=== PATIENT | male | born 1965 | race Caucasian/White ===

== ENCOUNTER 2018-01-25 05:08 | Observation (INO) | payer MEDICARE, OTHER ==
[~2018-01-25] VITALS: Ht 177.8 cm; Wt 106.8 kg
[2018-01-25] VITALS (8 sets, daily range): BP systolic 115–145; BP diastolic 70–86; PULSE 77–90; RESP 18–20; TEMP 97.9–98.3; O2SAT 94–98
[~2018-01-25 05:08] MED LIST: HYDR50IN3 PO; PARO30TA OR; RISP1TAB2 OR; SERO50TA OR
[2018-01-25] MEDS ORDERED: PARO10TA2 PO (05:34)
[2018-01-25] MEDS ORDERED: XANA2TAB2 PO (05:34)
[2018-01-25] MEDS ORDERED: BUPR100T4 PO (05:34)
[2018-01-25] MEDS ORDERED: TRAZ50TA12 PO (05:34)
[2018-01-25] MEDS ORDERED: RISP1TAB2 PO (05:34)
[2018-01-25 05:46] LABS: AUTOMATED NEUTROPHIL # 5.2 TH/MM3 (1.8-7.7); BASOPHIL # 0.1 TH/MM3 (0-0.2); BASOPHIL % 1.1 % (0.0-2.0); EOSINOPHIL # 0.3 TH/MM3 (0-0.4); EOSINOPHIL % 3.4 % (0.0-4.0); HEMATOCRIT 53.8 % (39.0-51.0); MEAN CELL VOLUME 91.5 FL (80.0-100.0); MEAN CORPUSCULAR HEMOGLOBIN 32.4 PG (27.0-34.0); MEAN CORPUSCULAR HGB CONC 35.4 % (32.0-36.0); MEAN PLATELET VOLUME 7.5 FL (7.0-11.0); MONO % 8.2 % (0.0-8.0); MONOCYTE # 0.8 TH/MM3 (0-0.9); NEUT % 55.3 % (16.0-70.0); PLATELET COUNT 208 TH/MM3 (150-450); RED BLOOD COUNT 5.88 MIL/MM3 (4.50-5.90); RED CELL DISTRIBUTION WIDTH 13.3 % (11.6-17.2); WHITE BLOOD COUNT 9.5 TH/MM3 (4.0-11.0)
[2018-01-25 05:58] LABS: PROTHROMBIN TIME - PATIENT 9.7 SEC (9.8-11.6)
[2018-01-25 05:59] LABS: ALBUMIN 4.2 GM/DL (3.4-5.0); AST (GOT) 30 U/L (15-37); BICARBONATE 20.3 MEQ/L (21.0-32.0); BLOOD UREA NITROGEN 8 MG/DL (7-18); CALCIUM 8.5 MG/DL (8.5-10.1); CHLORIDE 108 MEQ/L (98-107); CREATININE 1.01 MG/DL (0.60-1.30); GLOMERULAR FILTRATION RATE 78 ML/MIN (>89); GLUCOSE,RANDOM 125 MG/DL (74-106); MAGNESIUM 2.4 MG/DL (1.5-2.5); SODIUM (NA) 140 MEQ/L (136-145)
[2018-01-25 06:00] LABS: ALT (GPT) 57 U/L (12-78)
--- NOTE | 2018-01-25 06:00 | PD ---
HPI Chief Complaint: Psychiatric Symptoms Time Seen by Provider: 05:15 Travel History International Travel<30 days: No Contact w/Intl Traveler<30days: No Traveled to known affect area: No History of Present Illness HPI The patient is a 52 year old male who presents to the [facility] emergency department with a history of increased problems with depression and suicidal ideations that began a month ago. He reports that he has had persistent depression for the last 4 years in spite of medication. He is unsure of the exact names of his medications. He is followed by a psychiatrist that he cannot recall the name of as an outpatient. He reports that 4 months ago his depression became much worse when his . He reports that in October he began consuming alcohol again. He reports that prior to that he had been clean and sober for a year. He reports that he now is drinking alcohol on a regular basis. He reports that he typically will drink 8 beers daily. The patient reports that he has attempted suicide in the past by overdosing on medication and attempting to drown himself. He reports that today he began to plan to overdose on drugs again. He then called 911 for assistance. The patient was placed under a Harrington act. On review of systems otherwise, the patient reports having recurrent problems with anxiety attacks and chest pain. He reports that he feels a fluttering sensation in his chest. He reports having shortness of breath with panic attacks. He denies having any recent cough or congestion, fevers or chills. He denies having any abdominal pain, urinary symptoms, or neurologic symptoms. He does report on review of systems having nausea and vomiting 4 days ago, and diarrhea last week. He has recently been moving his bowels regularly. [facility] Past Medical History Narrative Medical The patient's past medical history is significant for hypertension, history of alcohol abuse, history of chronic tobacco use, history of major depression Autoimmune Disease: No Anxiety: Yes Depression: Yes Cancer: No Cardiovascular Problems: No Diabetes: No Diminished Hearing: No Endocrine: No Genitourinary: No Immune Disorder: No Musculoskeletal: No Neurologic: No Psychiatric: Yes (MAJOR DEPRESSION RECURRENT) Reproductive: No Respiratory: No Thyroid Disease: No Past Surgical History Narrative Surgical The patient's past surgical history is significant for right upper extremity surgery related to snakebite Abdominal Surgery: No Cardiac Surgery: No Ear Surgery: No Endocrine Surgery: No Eye Surgery: No Genitourinary Surgery: No Gynecologic Surgery: No Oral Surgery: No Thoracic Surgery: No Other Surgery: Yes (R UPPER EXTREMITY SNAKE BITES) Social History Alcohol Use: Yes (8 beers per day) Tobacco Use: Yes (1 PPD) Substance Use: No Allergies-Medications (Allergen,Severity, Reaction): Coded Allergies: No Known Allergies (Unverified , 10/11/12) Reported Meds & Prescriptions Reported Meds & Active Scripts Active Reported Paroxetine (Paroxetine HCl) 10 Mg Tab 10 Mg PO DAILY Xanax (Alprazolam) 2 Mg Tab 2 Mg PO BID PRN Trazodone (Trazodone HCl) 50 Mg Tab 50 Mg PO HS Bupropion HCl 100 Mg Tab 100 Mg PO HS Risperidone 1 Mg Tab 1 Mg PO HS Review of Systems Except as stated in HPI: all other systems reviewed are Neg General / Constitutional: No: Fever Eyes: No: Visual changes HENT: No: Headaches Cardiovascular: Positive: Chest Pain or Discomfort Respiratory: Positive: Shortness of Breath Gastrointestinal: Positive: Nausea, Vomiting, Abdominal Pain, No: Hematemesis, Hematochezia, Changes in Bowel Habits, Indigestion, Loss of Appetite Genitourinary: No: Dysuria Musculoskeletal: No: Pain Skin: No Rash Neurologic: No: Weakness Psychiatric: Positive: Anxiety, Depression, Suicidal Ideations, Mood Disorder, Substance Abuse, No: Homicidal Ideation Endocrine: No: Polydipsia Hematologic/Lymphatic: No: Easy Bruising Physical Exam Narrative General: The patient is a well-developed well-nourished male, tearful on examination, and no acute medical distress. The patient has a flat affect with poor eye contact. Head and Neck exam: Head is normocephalic atraumatic. Eyes: EOMI, pupils are equal round and reactive to light. Nose: Midline septum with pink mucous membranes Mouth: Dentition unremarkable. Moist mucus membranes. Posterior oropharynx is not erythematous. No tonsillar hypertrophy. Uvula midline. Airway patent. Neck: No palpable lymphadenopathy. No nuchal rigidity. No thyromegaly. Cardiovascular: Regular rate and rhythm without murmurs, gallops, or rubs. No pulse deficit to the extremities on simultaneous auscultation and palpation of his radial artery. Lungs: Clear to auscultation bilaterally. No wheezes, rhonchi, or rales. Abdomen: Soft, without tenderness to palpation in all 4 quadrants of the abdomen. No guarding, rebound, or rigidity. Normal bowel sounds are audible. No tenderness on palpation of McBurney's point. Negative Almeida sign peer Extremities: No clubbing, cyanosis, or edema. 2+ pulses in all 4 extremities. No calf tenderness on palpation. Back: No costovertebral angle tenderness to palpation. Neurologic Exam: Grossly nonfocal. Skin Exam: No rash noted. Intact skin that is warm and dry. Data Data Last Documented VS Vital Signs Date Time Temp Pulse Resp B/P (MAP) Pulse Ox O2 Delivery O2 Flow Rate FiO2 01/25/18 05:25 90 20 131/83 (99) 98 Room Air Orders Orders Electrocardiogram (01/25/18 05:15) Complete Blood Count With Diff (01/25/18 05:15) Comprehensive Metabolic Panel (01/25/18 05:15) Creatine Kinase (Cpk) (01/25/18 05:15) Ckmb (Isoenzyme) Profile (01/25/18 05:15) Troponin I (01/25/18 05:15) Prothrombin Time / Inr (Pt) (01/25/18 05:15) Act Partial Throm Time (Ptt) (01/25/18 05:15) Lipase (01/25/18 05:15) Urinalysis - C+S If Indicated (01/25/18 05:15) Magnesium (Mg) (01/25/18 05:15) Thyroid Stimulating Hormone (01/25/18 05:15) Chest, Single Ap (01/25/18 05:15) Iv Access Insert/Monitor (01/25/18 05:15) Ecg Monitoring (01/25/18 05:15) Oximetry (01/25/18 05:15) Drug Screen, Random Urine (01/25/18 05:15) Alcohol (Ethanol) (01/25/18 05:15) Salicylates (Aspirin) (01/25/18 05:15) Tylenol (Acetaminophen) (01/25/18 05:15) Westergren Sedimentation Rate (01/25/18 05:15) D-Dimer (01/25/18 05:15) Thiamine Inj (Thiamine Inj) (01/25/18 07:00) Aspirin Chew (Aspirin Chew) (01/25/18 06:15) Sodium Chlor 0.9% 1000 Ml Inj (Ns 1000 M (01/25/18 06:15) Nitroglycerin Sl (Nitrostat Sl) (01/25/18 06:15) Psych Screen (01/25/18 06:05) CKMB (01/25/18 05:25) CKMB% (01/25/18 05:25) Ct Pulmonary Angiogram (01/25/18 06:36) Labs Laboratory Tests Test 01/25/18 05:25 White Blood Count 9.5 TH/MM3 Red Blood Count 5.88 MIL/MM3 Hemoglobin 19.0 GM/DL Hematocrit 53.8 % Mean Corpuscular Volume 91.5 FL Mean Corpuscular Hemoglobin 32.4 PG Mean Corpuscular Hemoglobin Concent 35.4 % Red Cell Distribution Width 13.3 % Platelet Count 208 TH/MM3 Mean Platelet Volume 7.5 FL Neutrophils (%) (Auto) 55.3 % Lymphocytes (%) (Auto) 32.0 % Monocytes (%) (Auto) 8.2 % Eosinophils (%) (Auto) 3.4 % Basophils (%) (Auto) 1.1 % Neutrophils # (Auto) 5.2 TH/MM3 Lymphocytes # (Auto) 3.0 TH/MM3 Monocytes # (Auto) 0.8 TH/MM3 Eosinophils # (Auto) 0.3 TH/MM3 Basophils # (Auto) 0.1 TH/MM3 CBC Comment DIFF FINAL Differential Comment Erythrocyte Sedimentation Rate 1 mm/hr Prothrombin Time 9.7 SEC Prothromb Time International Ratio 1.0 RATIO Activated Partial Thromboplast Time 26.1 SEC D-Dimer Quantitative (PE/DVT) 0.51 MG/L FEU Blood Urea Nitrogen 8 MG/DL Creatinine 1.01 MG/DL Random Glucose 125 MG/DL Total Protein 8.3 GM/DL Albumin 4.2 GM/DL Calcium Level 8.5 MG/DL Magnesium Level 2.4 MG/DL Alkaline Phosphatase 60 U/L Aspartate Amino Transf (AST/SGOT) 30 U/L Alanine Aminotransferase (ALT/SGPT) 57 U/L Total Bilirubin 0.5 MG/DL Sodium Level 140 MEQ/L Potassium Level 3.9 MEQ/L Chloride Level 108 MEQ/L Carbon Dioxide Level 20.3 MEQ/L Anion Gap 12 MEQ/L Estimat Glomerular Filtration Rate 78 ML/MIN Total Creatine Kinase 154 U/L Creatine Kinase MB 2.4 NG/ML Troponin I LESS THAN 0.02 NG/ML Thyroid Stimulating Hormone 3rd Gen 2.530 uIU/ML Salicylates Level 3.1 MG/DL [facility] Medical Decision Making Medical Screen Exam Complete: Yes Emergency Medical Condition: Yes Medical Record Reviewed: Yes Differential Diagnosis Depression with suicidal ideations, versus substance-induced mood disorder, versus panic attack, versus acute coronary syndrome, versus pulmonary embolus Narrative Course During the course of the patient's emergency department visit, the patient's history, examination, and differential diagnosis were reviewed with the patient. The patient was placed on a school lunch monitor with oximetry and frequent blood pressure monitoring. The patient had IV access obtained and blood work sent for analysis. The patient had a EKG done on arrival that shows a sinus rhythm heart rate of 92, QRS duration 102 ms, QTC [address] segment elevation is noted. The patient's Harrington act was reviewed. The patient was initially provided aspirin 324 mg p.o. 1, nitroglycerin sublingual 1, normal saline at 100 mL/h, thiamine 100 mg IV. The patient's laboratory studies were reviewed and remarkable for a white count of 9.5, hemoglobin 19, platelets 208 with 8.2 monocytes, sedimentation rate is 1 , CMP is remarkable for chloride 108, CO2 20.3, glucose 125, cardiac enzymes within normal limits, TSH 2.53, PT PTT within normal limits, d-dimer is elevated at 0.51, CTA to rule out PE has been ordered. Salicylate is 3.1. Radiology studies were reviewed and remarkable for a chest x-ray with minimal basilar atelectasis The patient's case was checked out to the oncoming emergency physician to disposition based on the conclusion of the patient's workup. CTA and lipase are pending at this time. A psychiatric screen has been ordered regarding the patient's Harrington act. Diagnosis Primary Impression: Depression with suicidal ideation Additional Impression: Chest pain Qualified Codes: R07.9 - Chest pain, unspecified Nora Holloway MD January 25, 2018 06:00
[2018-01-25 06:03] LABS: D-DIMER 0.51 MG/L FEU (0.00-0.50)
[2018-01-25 06:09] LABS: ALKALINE PHOSPHATASE 60 U/L (45-117); TOTAL PROTEIN 8.3 GM/DL (6.4-8.2); TROPONIN I LESS THAN 0.02 NG/ML (0.02-0.05)
--- NOTE | 2018-01-25 06:09 | RADRPT ---
EXAM DATE/TIME: 01/25/2018 05:27 [facility] COMPARISON: No previous studies available for comparison. INDICATIONS : Short of breath. MEDICAL HISTORY : None. SURGICAL HISTORY : None. ENCOUNTER: Initial ACUITY: 1 day PAIN SCORE: 0/10 LOCATION: Bilateral chest FINDINGS: A single view of the chest demonstrates the lungs to be symmetrically aerated without evidence of mas s, infiltrate or effusion. Minimal basilar atelectasis. The cardiomediastinal contours are unremarka ble. Osseous structures are intact. CONCLUSION: 1. Minimal basilar atelectasis. Ishmael Kitchen MD on January 25, 2018 at 6:07 Board Certified Radiologist. This report was verified electronically.
[2018-01-25 06:12] LABS: TOTAL BILIRUBIN ADULT 0.5 MG/DL (0.2-1.0)
[2018-01-25] MEDS ORDERED: NITROGLYCERIN 0.4 MG SL 25 TABS/BTL SL ONE (06:15)
[2018-01-25] MEDS ORDERED: ASPIRIN 81 MG CHEW TAB CHEW ONE (06:15)
[2018-01-25] MEDS: SODIUM CHLOR 0.9% 1000 ML INJ 1,000 ML IV SCH ×2 (06:42→17:45)
[2018-01-25] MEDS ORDERED: THIAMINE INJ 100 MG in SODIUM CHLORIDE 0.9% INJ 100 ML IV ONE (07:00)
[2018-01-25] MEDS ORDERED: IOHEXOL 350 MG/ML 10 ML VIAL (for RAD DIAG) IVCONTRAST ONE (07:50)
--- NOTE | 2018-01-25 08:01 | RADRPT ---
EXAM DATE/TIME: 01/25/2018 07:42 [facility] COMPARISON: CHEST SINGLE AP, January 25, 2018, 5:27. INDICATIONS : Chest pain for several months IV CONTRAST: 70 cc Omnipaque 350 (iohexol) IV RADIATION DOSE: 23.13 CTDIvol (mGy) MEDICAL HISTORY : None SURGICAL HISTORY : None. ENCOUNTER: Initial ACUITY: 2 months PAIN SCALE: 3/10 LOCATION: chest TECHNIQUE: Volumetric scanning of the chest was performed using a pulmonary embolism protocol MIP images were re constructed. Using automated exposure control and adjustment of the mA and/or kV according to patien t size, radiation dose was kept as low as reasonably achievable to obtain optimal diagnostic quality images. DICOM format image data is available electronically for review and comparison. Follow-up recommendations for detected pulmonary nodules are based at a minimum on nodule size and pa tient risk factors according to Fleischner Society Guidelines. FINDINGS: PULMONARY ARTERIES: No filling defects are seen in the pulmonary arteries through the segmental level. LUNGS: There is no consolidation or pneumothorax . No concerning pulmonary nodule is visualized. PLEURAE: There is no pleural thickening or pleural effusion. MEDIASTINUM: There is good visualization of the great vessels of the middle mediastinum. No evidence of mediastin al or hilar adenopathy/mass. MUSCULOSKELETAL: Within normal limits for patient age. MISCELLANEOUS: The visualized upper abdominal organs demonstrate no acute abnormality. CONCLUSION: 1. No evidence for pulmonary embolism. 2. No consolidation or mass. Adrian Montano MD on January 25, 2018 at 7:57 Board Certified Radiologist. This report was verified electronically.
[2018-01-25 08:14] LABS: ACETAMINOPHEN LESS THAN 2.0 MCG/ML (10.0-30.0)
[2018-01-25 08:35] LABS: BILIRUBIN, URINE NEG (NEG); BLOOD, URINE NEG (NEG); GLUCOSE,URINE NEG (NEG); KETONE, URINE NEG (NEG); NITRITE,URINE NEG (NEG); SQUAMOUS EPITHELIAL CELL URINE 1 /hpf (0-5); URINE COLOR LIGHT-YELLOW (YELLW/STRAW); URINE LEUKOCYTE ESTERASE NEG (NEG)
--- NOTE | 2018-01-25 08:36 | PD ---
Physical Exam Narrative Received signout from Dr. Holloway for lab check and CT chest results. Patient's alcohol level was elevated and CT was negative for PE. Will transfer patient to the chest pain center with psychiatry consult pending. 0836: Mental health in ER to evaluate patient. Data Data Last Documented VS Vital Signs Date Time Temp Pulse Resp B/P (MAP) Pulse Ox O2 Delivery O2 Flow Rate FiO2 01/25/18 08:04 83 18 131/86 (101) 98 Room Air Orders Orders Electrocardiogram (01/25/18 05:15) Complete Blood Count With Diff (01/25/18 05:15) Comprehensive Metabolic Panel (01/25/18 05:15) Creatine Kinase (Cpk) (01/25/18 05:15) Ckmb (Isoenzyme) Profile (01/25/18 05:15) Troponin I (01/25/18 05:15) Prothrombin Time / Inr (Pt) (01/25/18 05:15) Act Partial Throm Time (Ptt) (01/25/18 05:15) Lipase (01/25/18 05:15) Urinalysis - C+S If Indicated (01/25/18 05:15) Magnesium (Mg) (01/25/18 05:15) Thyroid Stimulating Hormone (01/25/18 05:15) Chest, Single Ap (01/25/18 05:15) Iv Access Insert/Monitor (01/25/18 05:15) Ecg Monitoring (01/25/18 05:15) Oximetry (01/25/18 05:15) Drug Screen, Random Urine (01/25/18 05:15) Alcohol (Ethanol) (01/25/18 05:15) Salicylates (Aspirin) (01/25/18 05:15) Tylenol (Acetaminophen) (01/25/18 05:15) Westergren Sedimentation Rate (01/25/18 05:15) D-Dimer (01/25/18 05:15) Thiamine Inj (Thiamine Inj) (01/25/18 07:00) Aspirin Chew (Aspirin Chew) (01/25/18 06:15) Sodium Chlor 0.9% 1000 Ml Inj (Ns 1000 M (01/25/18 06:15) Nitroglycerin Sl (Nitrostat Sl) (01/25/18 06:15) Psych Screen (01/25/18 06:05) CKMB (01/25/18 05:25) CKMB% (01/25/18 05:25) Ct Pulmonary Angiogram (01/25/18 06:36) Iohexol 350 Inj (Omnipaque 350 Inj) (01/25/18 07:50) Labs Laboratory Tests Test 01/25/18 05:25 01/25/18 08:00 White Blood Count 9.5 TH/MM3 Red Blood Count 5.88 MIL/MM3 Hemoglobin 19.0 GM/DL Hematocrit 53.8 % Mean Corpuscular Volume 91.5 FL Mean Corpuscular Hemoglobin 32.4 PG Mean Corpuscular Hemoglobin Concent 35.4 % Red Cell Distribution Width 13.3 % Platelet Count 208 TH/MM3 Mean Platelet Volume 7.5 FL Neutrophils (%) (Auto) 55.3 % Lymphocytes (%) (Auto) 32.0 % Monocytes (%) (Auto) 8.2 % Eosinophils (%) (Auto) 3.4 % Basophils (%) (Auto) 1.1 % Neutrophils # (Auto) 5.2 TH/MM3 Lymphocytes # (Auto) 3.0 TH/MM3 Monocytes # (Auto) 0.8 TH/MM3 Eosinophils # (Auto) 0.3 TH/MM3 Basophils # (Auto) 0.1 TH/MM3 CBC Comment DIFF FINAL Differential Comment Erythrocyte Sedimentation Rate 1 mm/hr Prothrombin Time 9.7 SEC Prothromb Time International Ratio 1.0 RATIO Activated Partial Thromboplast Time 26.1 SEC D-Dimer Quantitative (PE/DVT) 0.51 MG/L FEU Blood Urea Nitrogen 8 MG/DL Creatinine 1.01 MG/DL Random Glucose 125 MG/DL Total Protein 8.3 GM/DL Albumin 4.2 GM/DL Calcium Level 8.5 MG/DL Magnesium Level 2.4 MG/DL Alkaline Phosphatase 60 U/L Aspartate Amino Transf (AST/SGOT) 30 U/L Alanine Aminotransferase (ALT/SGPT) 57 U/L Total Bilirubin 0.5 MG/DL Sodium Level 140 MEQ/L Potassium Level 3.9 MEQ/L Chloride Level 108 MEQ/L Carbon Dioxide Level 20.3 MEQ/L Anion Gap 12 MEQ/L Estimat Glomerular Filtration Rate 78 ML/MIN Total Creatine Kinase 154 U/L Creatine Kinase MB 2.4 NG/ML Troponin I LESS THAN 0.02 NG/ML Lipase 179 U/L Thyroid Stimulating Hormone 3rd Gen 2.530 uIU/ML Salicylates Level 3.1 MG/DL Acetaminophen Level LESS THAN 2.0 MCG/ML Ethyl Alcohol Level 176 MG/DL [facility] Supervised Visit with LUDIVINA: No Interpretation(s) Last Impressions CT Angiography 01/25/18 0636 Signed Impressions: Service Date/Time: Thursday, January 25, 2018 07:42 - CONCLUSION: 1. No evidence for pulmonary embolism. 2. No consolidation or mass. Adrian Montano MD Chest X-Ray 01/25/18 0515 Signed Impressions: Service Date/Time: Thursday, January 25, 2018 05:27 - CONCLUSION: 1. Minimal basilar atelectasis. Ishmael Kitchen MD Diagnosis Primary Impression: Depression with suicidal ideation Additional Impression: Chest pain Qualified Codes: R07.9 - Chest pain, unspecified Admitting Information Admitting Physician Requests: Observation Condition: Stable Ivonne Rodriguez MD January 25, 2018 08:36
[2018-01-25] MEDS ORDERED: ALPRAZolam 1 MG TAB PO PRN (12:30)
[2018-01-25] MEDS ORDERED: ONDANSETRON ODT 4 MG TAB PO PRN (12:30)
[2018-01-25] MEDS ORDERED: ACETAMINOPHEN 500 MG CPLT PO PRN (12:30)
[2018-01-25] MEDS ORDERED: ACETAMINOPHEN/HYDROcodone 325 MG/7.5 MG TAB PO PRN (12:30)
[2018-01-25] MEDS ORDERED: RESP: ALBUTEROL 2.5 MG/IPRATROPIUM 0.5 MG NEB (PRN) INH (12:30)
[2018-01-25] MEDS ORDERED: cloNIDine HCL 0.1 MG TAB PO PRN (12:30)
--- NOTE | 2018-01-25 12:44 | HHI.HP ---
[facility] Primary Care Physician Parish Tay M.D. 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 Patient states that he was having suicidal thoughts. States he has been very depressed. His had about 4 months ago and his depression is worsening. He was contemplating overdosing. States he is attempted overdose in the past. However prior to attempting overdose, he called 911. A [place] act was initiated by [place] coy. While in the back of the police car patient developed a chest discomfort that he describes as a heaviness in the center of his chest with also fluttering. It lasted about 30 minutes. He was little short of breath. No nausea or diaphoresis. Denies history of heart disease but states he has never had a stress test. Currently denies chest discomfort. Currently denies having suicidal thoughts. Voices compliance with his medication for bipolar disorder. Review of Systems General: Patient denies fevers, chills, and recent travel HEENT: Patient denies headache, sore throat, difficulty swallowing. Cardiovascular: Has the chest discomfort as mentioned above. Denies sensation of heart beating rapidly or irregularly. No syncope. Denies diaphoresis. Respiratory: He was short of breath. Denies inspirational chest discomfort. Denies coughing wheezing or hemoptysis. GI: Patient denies nausea, vomiting, diarrhea, abdominal pain, bloody stools. Musculoskeletal: Patient denies joint pain or edema. Denies calf pain or edema. Neurovascular: Patient denies numbness, tingling, weakness in extremities. Denies headache. Endocrine: Denies polyuria and polydipsia. Hematologic: Denies easy bruising. Psych: Admits to having suicidal ideations. Denies hallucinations or delusions. Skin: Denies rash or itching. Past Family Social History Allergies: Coded Allergies: No Known Allergies (Unverified , 10/11/12) Past Medical History Bipolar disorder. Tobacco abuse. Denies hypertension, hyperlipidemia, diabetes , and known CAD. Past Surgical History Surgery to right upper extremity secondary to a snakebite. Reported Medications Reported Meds & Active Scripts Active Reported Paroxetine (Paroxetine HCl) 10 Mg Tab 10 Mg PO DAILY Xanax (Alprazolam) 2 Mg Tab 2 Mg PO BID PRN Trazodone (Trazodone HCl) 50 Mg Tab 50 Mg PO HS Bupropion HCl 100 Mg Tab 100 Mg PO HS Risperidone 1 Mg Tab 1 Mg PO HS Active Ordered Medications Current Medications Medications (Trade) Dose Ordered Sig/Lizzette Route Start Time Stop Time Status Last Admin Sodium Chloride 1,000 ml @ 100 mls/hr Q10H IV 01/25/18 06:15 01/25/18 06:42 (Xanax) 2 mg BID PRN PO 01/25/18 12:30 UNV (Wellbutrin) 100 mg HS PO 01/25/18 21:00 UNV (risperDAL) 1 mg HS PO 01/25/18 21:00 UNV (Desyrel) 50 mg HS PO 01/25/18 21:00 UNV Non-Formulary Medication 10 mg DAILY PO 01/25/18 12:30 UNV (Tylenol) 500 mg Q4H PRN PO 01/25/18 12:30 UNV ([place] 7.5-325 Mg) 1 tab Q4H PRN PO 01/25/18 12:30 UNV (Zofran Inj) 4 mg Q6H PRN IV PUSH 01/25/18 12:30 UNV (Aspirin) 325 mg DAILY PO 01/26/18 09:00 UNV (Duoneb Neb) 1 ampule Q4HR NEB PRN INH 01/25/18 12:30 UNV (Catapres) 0.1 mg Q4H PRN PO 01/25/18 12:30 UNV Family History Denies family history of CAD. Social History Smokes about 1 pack of cigarettes daily for 15 years. Has occasional alcohol, states he had 6 beers last evening. Denies illicit drug use. Physical Exam Vital Signs Vital Signs Date Time Temp Pulse Resp B/P (MAP) Pulse Ox O2 Delivery O2 Flow Rate FiO2 01/25/18 12:30 77 18 145/72 (96) 98 Room Air 01/25/18 09:37 97 Room Air 01/25/18 08:04 83 18 131/86 (101) 98 Room Air 01/25/18 05:25 90 20 131/83 (99) 98 Room Air Physical Exam GENERAL: This is a well-nourished, well-developed patient, in no apparent distress. Patient speaks in clear complete sentences. Patient is pleasant. HEENT: Head is atraumatic and normocephalic. Neck is supple without lymphadenopathy and trachea is midline. No JVD or carotid bruits. CARDIOVASCULAR: Regular rate and rhythm without murmurs, gallops, or rubs. RESPIRATORY: Clear to auscultation. Breath sounds equal bilaterally. No wheezes , rales, or rhonchi. Chest wall is nontender. No use of accessory muscles. GASTROINTESTINAL: Abdomen is nontender, nondistended. Abdomen soft. No obvious pulsatile mass or bruit. No CVA tenderness. Strong femoral pulses bilaterally. Normal bowel sounds in all quadrants. MUSCULOSKELETAL: Patient is moving upper and lower extremities freely. No calf tenderness or edema, no Homans sign. Strong pulses in upper and lower extremities. NEUROLOGICAL: Patient is alert and oriented. Cranial nerves 2-12 are grossly intact. No focal deficits and speech is clear. SKIN: No rash and turgor is normal. Laboratory Laboratory Tests Test 01/25/18 05:25 01/25/18 08:00 White Blood Count 9.5 Red Blood Count 5.88 Hemoglobin 19.0 Hematocrit 53.8 Mean Corpuscular Volume 91.5 Mean Corpuscular Hemoglobin 32.4 Mean Corpuscular Hemoglobin Concent 35.4 Red Cell Distribution Width 13.3 Platelet Count 208 Mean Platelet Volume 7.5 Neutrophils (%) (Auto) 55.3 Lymphocytes (%) (Auto) 32.0 Monocytes (%) (Auto) 8.2 Eosinophils (%) (Auto) 3.4 Basophils (%) (Auto) 1.1 Neutrophils # (Auto) 5.2 Lymphocytes # (Auto) 3.0 Monocytes # (Auto) 0.8 Eosinophils # (Auto) 0.3 Basophils # (Auto) 0.1 CBC Comment DIFF FINAL Differential Comment Erythrocyte Sedimentation Rate 1 Prothrombin Time 9.7 Prothromb Time International Ratio 1.0 Activated Partial Thromboplast Time 26.1 D-Dimer Quantitative (PE/DVT) 0.51 Blood Urea Nitrogen 8 Creatinine 1.01 Random Glucose 125 Total Protein 8.3 Albumin 4.2 Calcium Level 8.5 Magnesium Level 2.4 Alkaline Phosphatase 60 Aspartate Amino Transf (AST/SGOT) 30 Alanine Aminotransferase (ALT/SGPT) 57 Total Bilirubin 0.5 Sodium Level 140 Potassium Level 3.9 Chloride Level 108 Carbon Dioxide Level 20.3 Anion Gap 12 Estimat Glomerular Filtration Rate 78 Total Creatine Kinase 154 Creatine Kinase MB 2.4 Troponin I LESS THAN 0.02 Lipase 179 Thyroid Stimulating Hormone 3rd Gen 2.530 Salicylates Level 3.1 Acetaminophen Level LESS THAN 2.0 Ethyl Alcohol Level 176 Urine Color LIGHT-YELLOW Urine Turbidity CLEAR Urine pH 5.0 Urine Specific [place] 1.009 Urine Protein NEG Urine Glucose (UA) NEG Urine Ketones NEG Urine Occult Blood NEG Urine Nitrite NEG Urine Bilirubin NEG Urine Urobilinogen LESS THAN 2.0 Urine Leukocyte Esterase NEG Urine WBC LESS THAN 1 Urine Squamous Epithelial Cells 1 Microscopic Urinalysis Comment CULT NOT INDICATED Result Diagram: 01/25/1852401/25/18524 Imaging Last [address] Angiography 01/25/18635 Signed Impressions: Service Date/Time: Thursday, January 25, 2018 07:42 - CONCLUSION: 1. No evidence for pulmonary embolism. 2. No consolidation or mass. Adrian Montano MD Chest X-Ray 01/25/18514 Signed Impressions: Service Date/Time: Thursday, January 25, 2018 05:27 - CONCLUSION: 1. Minimal basilar atelectasis. Ishmael Kitchen MD Course EKGs: Initial EKG is sinus rhythm without significant ST segment depressions or elevations. Caprini VTE Risk Assessment Caprini VTE Risk Assessment: No/Low Risk (score <= 1) Caprini Risk Assessment Model Point Value = 1 Point Value = 2 Point Value = 3 Point Value = 5 Age 41-60 Minor surgery BMI > 25 kg/m2 Swollen legs Varicose veins or History of unexplained or recurrent spontaneous Oral contraceptives or hormone replacement Sepsis (< 1 month) Serious lung disease, including pneumonia (< 1 month) Abnormal pulmonary function Acute myocardial infarction Congestive heart failure (< 1 month) History of inflammatory bowel disease Medical patient at bed rest Age 61-74 Arthroscopic surgery Major open surgery (> 45 min) Laparoscopic surgery (> 45 min) Malignancy Confined to bed (> 72 hours) Immobilizing plaster cast Central venous access Age >= 75 History of VTE Family history of VTE Factor V Leiden Prothrombin [id number] Lupus anticoagulant Anticardiolipin antibodies Elevated serum homocysteine Heparin-induced thrombocytopenia Other congenital or acquired thrombophilia Stroke (< 1 month) Elective arthroplasty Hip, pelvis, or leg fracture Acute spinal cord injury (< 1 month) Prophylaxis Regimen Total Risk Factor Score Risk Level Prophylaxis Regimen 0-1 Low Early ambulation 2 Moderate Order ONE of the following: *Sequential Compression Device (SCD) *Heparin 5000 units SQ BID 3-4 Higher Order ONE of the following medications: *Heparin 5000 units SQ TID *Enoxaparin/Lovenox 40 mg SQ daily (WT < 150 kg, CrCl > 30 mL/min) *Enoxaparin/Lovenox 30 mg SQ daily (WT < 150 kg, CrCl > 10-29 mL/min) *Enoxaparin/Lovenox 30 mg SQ BID (WT < 150 kg, CrCl > 30 mL/min) AND/OR *Sequential Compression Device (SCD) 5 or more Highest Order ONE of the following medications: *Heparin 5000 units SQ TID (Preferred with Epidurals) *Enoxaparin/Lovenox 40 mg SQ daily (WT < 150 kg, CrCl > 30 mL/min) *Enoxaparin/Lovenox 30 mg SQ daily (WT < 150 kg, CrCl > 10-29 mL/min) *Enoxaparin/Lovenox 30 mg SQ BID (WT < 150 kg, CrCl > 30 mL/min) AND *Sequential Compression Device (SCD) Assessment and Plan Assessment and Plan * Chest pain: Patient will continue to have serial cardiac enzymes and EKGs for ruling out purposes. He will be seen by Dr. Rendon of cardiology in the chest pain center. By psychiatry. Patient is also here under [place] act having suicidal ideations. * Suicidal ideations: Patient is under [place] act. Psych consult is pending. Further plan pending the evaluation of psychiatry. * Bipolar disorder: Continue medications. * Tobacco abuse: Patient has been counseled on the importance of smoking cessation. Patient is stable at this time. He is agreeable to this plan. David Birch January 25, 2018 12:44
[2018-01-25 13:17] LABS: TROPONIN I LESS THAN 0.02 NG/ML (0.02-0.05)
[2018-01-25] MEDS ORDERED: REGADENOSON INJ 0.4 MG/5 ML SYR ONE (15:03)
[2018-01-25] MEDS: PARoxetine HCL 20 MG TAB PO SCH (16:17)
--- NOTE | 2018-01-25 16:46 | RADRPT ---
EXAM DATE/TIME: 01/25/2018 14:46 CORRECTION Corrected on: January 25, 2018; [place] COMPARISON: No previous studies available for comparison. INDICATIONS : Chest pain and dyspnea with panic attacks. Angina. DOSE: 35 mCi Tc99m Myoview at stress. 11 mCi Tc99m Myoview at rest. 0.4 mg Lexiscan STRESS SYMPTOMS: None. EJECTION FRACTION: 40% MEDICAL HISTORY : Smoker. SURGICAL HISTORY : None. ENCOUNTER: Initial ACUITY: 1 day PAIN SCALE: 6/10 LOCATION: chest TECHNIQUE: The patient underwent pharmacologic stress with infusion of prescribed dose. Continuous ECG tracing was monitored during stress. Gated SPECT imaging was performed after stress and conventional SPECT i maging was performed at rest. The examination was performed on a SPECT/CT scanner, both attenuation and non-corrected datasets were reviewed. FINDINGS: DISTRIBUTION: The maximum perfused segment at stress is in the septal wall. PERFUSION STUDY: Decrease perfusion during stress in the mid anterolateral wall. Apparent decreased perfusion in the i nferior wall may be due to gut activity on rest images. GATED STUDY: Mild diffuse global hypokinesia without focal wall motion abnormality. CONCLUSION: 1. Findings consistent with focal stress-induced ischemia in the mid anterolateral angel. 2. Apparent decreased perfusion in the inferior wall is likely due to gut activity on rest images. 3. Mild global hypokinesia without focal wall motion abnormality. Reduced EF of 49%. RISK CATEGORY: Intermediate (1-3% Annual Mortality Rate) Pavan Hale MD on January 25, 2018 at 16:40 Board Certified Radiologist. This report was verified electronically. Pavan Hale MD on January 25, 2018 at 17:13 Board Certified Radiologist. This report was verified electronically.
--- NOTE | 2018-01-25 17:00 | TR ---
Date Performed: 01/25/2018 Time Performed: 15:03:15 DOCTOR: Twyla Rendon DRUG LIST: CLINICAL HISTORY: REASON FOR TEST: REASON FOR ENDING: OBSERVATION: CONCLUSION: Lexiscan stress test was performed under standard four minute protocol. Radionuclid e was injected one minute prior to ending the test. No electrocardiographic abormalities were present to suggest ischemia. Nuclear imaging and interpretation are pending. COMMENTS: no ischemia
[2018-01-25] MEDS: amLODIPine BESYLATE 5 MG TAB PO SCH (17:46)
--- NOTE | 2018-01-25 18:13 | EKG ---
Date Performed: 01/25/2018 Time Performed: 05:17:37 PTAGE: 52 years EKG: Sinus rhythm LEFT ANTERIOR FASCICULAR BLOCK ABNORMAL ECG PREVIOUS TRACING : 10/11/2012 19.59 Since the previous tracing, no significant change noted DOCTOR: Twyla Rendon Interpretating Date/Time 01/25/2018 18:11:10
[2018-01-25] MEDS ORDERED: traZODone HCL 50 MG TAB PO SCH (21:00)
[2018-01-25] MEDS ORDERED: risperiDONE 1 MG TAB PO SCH (21:00)
[2018-01-25] MEDS ORDERED: buPROPion HCL 100 MG TAB PO SCH (21:00)
[2018-01-26] VITALS: PULSE 84
[2018-01-26 00:29] LABS: TROPONIN I LESS THAN 0.02 NG/ML (0.02-0.05)
[2018-01-26 00:39] VITALS: BP 138/83; PULSE 77; RESP 16; TEMP 97.9; O2SAT 95
[2018-01-26] MEDS: SODIUM CHLOR 0.9% 1000 ML INJ 1,000 ML IV SCH (02:15)
[2018-01-26 04:07] VITALS: BP 133/82; PULSE 74; RESP 16; TEMP 97.7; O2SAT 94
--- NOTE | 2018-01-26 08:02 | PD.CARD.PN ---
Subjective Subjective Remarks Offers no complaints. Denies chest pain. Denies having suicidal or homicidal ideations. States he is feeling better. Objective Medications Current Medications Medications (Trade) Dose Ordered Sig/Lizzette Route Start Time Stop Time Status Last Admin Sodium Chloride 1,000 ml @ 100 mls/hr Q10H IV 01/25/18 06:15 01/25/18 06:42 (Xanax) 2 mg BID PRN PO 01/25/18 12:30 (Wellbutrin) 100 mg HS PO 01/25/18 21:00 01/25/18 20:45 (risperDAL) 1 mg HS PO 01/25/18 21:00 01/25/18 20:45 (Desyrel) 50 mg HS PO 01/25/18 21:00 01/25/18 20:45 (Paxil) 10 mg DAILY PO 01/25/18 12:30 01/25/18 16:17 (Tylenol) 500 mg Q4H PRN PO 01/25/18 12:30 01/25/18 16:17 ([place] 7.5-325 Mg) 1 tab Q4H PRN PO 01/25/18 12:30 (Zofran Odt) 4 mg Q6H PRN PO 01/25/18 12:30 (Aspirin) 325 mg DAILY PO 01/26/18 09:00 (Duoneb Neb) 1 ampule Q4HR NEB PRN INH 01/25/18 12:30 (Catapres) 0.1 mg Q4H PRN PO 01/25/18 12:30 (Norvasc) 2.5 mg DAILY PO 01/25/18 17:15 01/25/18 17:46 Vital Signs / I&O Vital Signs Date Time Temp Pulse Resp B/P (MAP) Pulse Ox O2 Delivery O2 Flow Rate FiO2 01/26/18 04:07 97.7 74 16 133/82 (99) 94 01/26/18 03:19 21 01/26/18 00:39 97.9 77 16 138/83 (101) 95 01/26/18 00:00 84 01/25/18 20:00 90 01/25/18 19:34 98.3 88 18 130/73 (92) 95 01/25/18 16:10 98.1 78 18 124/83 (97) 94 01/25/18 12:47 97.9 82 18 115/70 (85) 95 01/25/18 12:30 77 18 145/72 (96) 98 Room Air 01/25/18 09:37 97 Room Air 01/25/18 08:04 83 18 131/86 (101) 98 Room Air I/O 01/25/18 01/25/18 01/25/18 01/26/18 01/26/18 01/26/18 07:00 15:00 23:00 07:00 15:00 23:00 Intake Total 240 ml Balance 240 ml Intake Oral 240 ml # Bowel Movements 1 Physical Exam General: In no apparent distress. Sitter is at the bedside. Cardiac: Regular rate and rhythm without murmur gallop or rub. Lungs: Clear to auscultate bilaterally. GI: Abdomen nontender. Bowel sounds normal. Psych: Patient denying suicidal and homicidal ideations. Laboratory Laboratory Tests Test 01/25/18 12:28 Total Creatine Kinase 128 U/L Creatine Kinase MB 1.8 NG/ML Troponin I LESS THAN 0.02 NG/ML Assessment and Plan Assessment and Plan * Chest pain: Patient will continue to have serial cardiac enzymes and EKGs for ruling out purposes. He will be seen by Dr. Rendon of cardiology in the chest pain center. By psychiatry. Patient is also here under [place] act having suicidal ideations. * Suicidal ideations: Patient is under [place] act. Psych consult is pending. Further plan pending the evaluation of psychiatry. * Bipolar disorder: Continue medications. * Tobacco abuse: Patient has been counseled on the importance of smoking cessation. Patient is stable at this time. He is agreeable to this plan. Patient has been medically cleared. Patient has been started on amlodipine. Awaiting psychiatry consultation, likely to be discharged to psych department. Patient was seen by psychiatry. Dr. Mcnulty has lifted the [place] act. Patient will be discharged home at this time with instruction to follow-up with a psychiatrist, resume his medications. Return to ED for interval issues. David Birch January 26, 2018 08:02
[2018-01-26 08:13] VITALS: BP 147/83; PULSE 74; RESP 18; TEMP 97.7; O2SAT 94
--- NOTE | 2018-01-26 08:39 | EKG ---
Date Performed: 01/25/2018 Time Performed: 22:02:04 PTAGE: 52 years EKG: Sinus rhythm BORDERLINE LEFT AXIS DEVIATION BORDERLINE ECG PREVIOUS TRACING : 01/25/2018 12.28 Since previous tracing, no significant change noted DOCTOR: Parish Estrada Interpretating Date/Time 01/26/2018 08:38:56
--- NOTE | 2018-01-26 08:40 | EKG ---
Date Performed: 01/25/2018 Time Performed: 12:28:45 PTAGE: 52 years EKG: Sinus rhythm BORDERLINE LEFT AXIS DEVIATION NONSPECIFIC T-WAVE ABNORMALITY BORDERLINE ECG PREVIOUS TRACING : 01/25/2018 05.17 Since previous tracing, no significant change noted DOCTOR: Parish Estrada Interpretating Date/Time 01/26/2018 08:39:32
[2018-01-26] MEDS ORDERED: ASPIRIN 325 MG TAB PO SCH (09:00)
[2018-01-26 09:30] VITALS: PULSE 91
[2018-01-26] MEDS: amLODIPine BESYLATE 5 MG TAB PO SCH (09:37)
[2018-01-26] MEDS: PARoxetine HCL 20 MG TAB PO SCH (09:38)
--- NOTE | 2018-01-26 11:26 | PD.PSY.CON ---
Provisional Diagnosis Admission Date January 25, 2018 at 08:40 Logan I. Schizoaffective disorder, depressive type, alcohol use disorder Logan II. Deferred Logan III. No significant medical history Logan IV. His last August Logan V. 57 History of Present Illness Service Psychiatry Consult Requested By ER Reason for Consult SI Primary Care Physician Parish Tay M.D. HPI The patient is a 52-year-old [place] man, domiciled with his [id number], no kids, unemployed, supported by [facility], with psychiatric history of schizoaffective disorder, alcohol use disorder, 3 previous psychiatric hospitalizations, 2 previous suicide attempts, outpatient psychiatric care in the 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 States he has been very depressed. His had about 4 months ago and his depression is worsening. He was contemplating overdosing. States he is attempted overdose in the past. However prior to attempting overdose, he called 911. A Harrington act was initiated by [place] coy. While in the back of the police car patient developed a chest discomfort that he describes as a heaviness in the center of his chest with also fluttering. It lasted about 30 minutes. He was little short of breath. No nausea or diaphoresis. Denies history of heart disease but states he has never had a stress test. Currently denies chest discomfort. Currently denies having suicidal thoughts. Voices compliance with his medication for bipolar disorder. The patient was consulted to psychiatry. Initial BAL was 176, EMR reviewed. Psychiatric evaluation today patient is calm and cooperative. The patient reports that yesterday he was drinking remembering his . He became depressed and had suicidal thoughts and prefer to be the hospital. He reports that he has being quite depressed for the last 4 months, but current psychotropic regimen is really helping. Patient reports that he should not be drinking , because when he drinks alcohol he becomes more depressed. Now he is clinically sober. He reports feeling sad, but he denies anhedonia, denies hopelessness, denies helplessness, denies worthlessness, denies suicidal and homicidal ideation. He denies visual and auditory hallucinations. The patient is future oriented, motivated to get better medically and psychiatrically. He is fully oriented 3, no gross cognitive impairment present. He denies the use of illegal drugs, reports occasional use of alcohol. Review of Systems Constitutional: DENIES: Diaphoretic episodes, Fatigue, Fever, Weight gain, Weight loss, Chills, Dizziness, Change in appetite, Night Sweats Endocrine: DENIES: Heat/cold intolerance, Polydipsia, Polyuria, Polyphagia Eyes: DENIES: Blurred vision, Diplopia, Eye inflammation, Eye pain, Vision loss , Photosensitivity, Double Vision Ears, nose, mouth, throat: DENIES: Tinnitus, Hearing loss, Vertigo, Nasal discharge, Oral lesions, Throat pain, Hoarseness, Ear Pain, Running Nose, Epistaxis, Sinus Pain, Toothache, Odynophagia Respiratory: DENIES: Apneas, Cough, Snoring, Wheezing, Hemoptysis, Sputum production, Shortness of breath Cardiovascular: DENIES: Chest pain, Palpitations, Syncope, Dyspnea on Exertion , PND, Lower Extremity Edema, Orthopnea, Claudication Gastrointestinal: DENIES: Abdominal pain, Black stools, Bloody stools, Constipation, Diarrhea, Nausea, Vomiting, Difficulty Swallowing, Anorexia Genitourinary: DENIES: Sexual dysfunction, Urinary frequency, Urinary incontinence, Urgency, Hematuria, Dysuria, Nocturia, Penile Discharge, Testicular Pain, Testicular Swelling Musculoskeletal: DENIES: Joint pain, Muscle aches, Stiffness, Joint Swelling, Back pain, Neck pain Integumentary: DENIES: Abnormal pigmentation, Nail changes, Pruritus, Rash Hematologic/lymphatic: DENIES: Bruising, Lymphadenopathy Immunologic/allergic: DENIES: Eczema, Urticaria Neurologic: DENIES: Abnormal gait, Headache, Localized weakness, Paresthesias, Seizures, Speech Problems, Tremor, Poor Balance Psychiatric: DENIES: Anxiety, Confusion, Mood changes, Depression, Hallucinations, Agitation, Suicidal Ideation, Homicidal Ideation, Delusions Past Family Social History Coded Allergies: No Known Allergies (Unverified , 10/11/12) Reported Medications Paroxetine (Paroxetine) 10 Mg Tab, 10 MG PO DAILY, #30 TAB 0 Refills 01/25/18 Alprazolam (Xanax) 2 Mg Tab, 2 MG PO BID Y for ANXIETY, TAB 0 Refills 01/25/18 Trazodone (Trazodone) 50 Mg Tab, 50 MG PO HS for Control Depression, #30 TAB 0 Refills 01/25/18 Bupropion HCl (Bupropion HCl) 100 Mg Tab, 100 MG PO HS for Control Depression, TAB 0 Refills 01/25/18 Risperidone (Risperidone) 1 Mg Tab, 1 MG PO HS, #30 TAB 0 Refills 01/25/18 Discontinued Reported Medications Quetiapine Fumarate 50 mg (Seroquel 50 mg) 50 Mg Tab, 100 MG OR HS 10/11/12 Hydroxyzine Hcl (Hydroxyzine HCl) 50 Mg/Ml Inj, 50 MG PO HS 10/11/12 Current Medications Medications (Trade) Dose Ordered Sig/Lizzette Route Start Time Stop Time Status Last Admin Sodium Chloride 1,000 ml @ 100 mls/hr Q10H IV 01/25/18 06:15 01/25/18 06:42 (Xanax) 2 mg BID PRN PO 01/25/18 12:30 (Wellbutrin) 100 mg HS PO 01/25/18 21:00 01/25/18 20:45 (risperDAL) 1 mg HS PO 01/25/18 21:00 01/25/18 20:45 (Desyrel) 50 mg HS PO 01/25/18 21:00 01/25/18 20:45 (Paxil) 10 mg DAILY PO 01/25/18 12:30 01/26/18 09:38 (Tylenol) 500 mg Q4H PRN PO 01/25/18 12:30 01/25/18 16:17 (Helm 7.5-325 Mg) 1 tab Q4H PRN PO 01/25/18 12:30 (Zofran Odt) 4 mg Q6H PRN PO 01/25/18 12:30 (Aspirin) 325 mg DAILY PO 01/26/18 09:00 01/26/18 09:37 (Duoneb Neb) 1 ampule Q4HR NEB PRN INH 01/25/18 12:30 (Catapres) 0.1 mg Q4H PRN PO 01/25/18 12:30 (Norvasc) 2.5 mg DAILY PO 01/25/18 17:15 01/26/18 09:37 Family Psych History No family psychiatric history Social History The patient was born and raised in [place], he lives in [facility] of his mother-in- law, he is , unemployed, no kids, supported by [facility], his highest level of education is high school Patient's Strengths (min. 2) Outpatient psychiatric care Physical Exam Patient does not present tremors, no withdrawal symptoms, no EPS, no stiffness, no psychomotor retardation or agitation Vital Signs Vital Signs Date Time Temp Pulse Resp B/P (MAP) Pulse Ox O2 Delivery O2 Flow Rate FiO2 01/26/18 09:30 91 01/26/18 08:13 97.7 18 147/83 (104) 94 01/26/18 03:19 21 01/25/18 12:30 Room Air Lab Results Test 01/25/18 12:28 Total Creatine Kinase 128 U/L Creatine Kinase MB 1.8 NG/ML Troponin I LESS THAN 0.02 NG/ML Mental Status Examination Appearance: Appropriate Consciousness: Alert Orientation: x4 Motor Activity: Normal gait Speech: Unremarkable Language: Adequate Fund of Knowledge: Adequate Attention and Concentration: Adequate Memory: Unremarkable Mood: Appropriate Affect: Appropriate Thought Process & Associations: Intact Thought Content: Appropriate Hallucination Type: None Delusion Type: None Suicidal Ideation: No Suicidal Plan: No Suicidal Intention: No Homicidal Ideation: No Homicidal Plan: No Homicidal Intention: No Insight: Adequate Judgment: Adequate Assessment & Plan Problem List: (1) Alcohol abuse with alcohol-induced mood disorder ICD Codes: F10.14 - Alcohol abuse with alcohol-induced mood disorder Assessment & Plan: Psychiatric evaluation today the patient does not present any acute, significant evidence of depression symptomatology, anxiety, abilio or psychosis. Patient does report sadness, moments of tear given the recent of his , but he denies hopelessness, denies helplessness, worthlessness, he denies suicidal enemas ideation. He denies visual and auditory hallucinations. Patient is clinically sober right now. No withdrawal symptoms present. Apparently, his recent suicidal statement was done in the context of alcohol intoxication. He does not meet criteria for involuntary psychiatric admission. He will continue psychiatric care as an outpatient. Start CIWA. Restart psychotropics: Paroxetine (Paroxetine HCl) 10 Mg Tab 10 Mg PO DAILY, Trazodone ( Trazodone HCl) 50 Mg Tab 50 Mg PO HS, Bupropion HCl 100 Mg Tab 100 Mg PO HS, Risperidone 1 Mg Tab 1 Mg PO HS. brief supportive psychotherapy provided. Harrington act will be lifted. Assessment & Plan Estimated LOS: Marlo Fletcher MD January 26, 2018 11:25
[2018-01-26] MEDS ORDERED: AMLO2.5T PO (11:49)
--- NOTE | 2018-01-26 11:49 | HHI.DCPOC ---
Discharge Care Plan Diagnosis: (1) Chest pain (2) Depression with suicidal ideation (3) Alcohol abuse with alcohol-induced mood disorder (4) Bipolar disorder (5) Tobacco abuse Goals to Promote Your Health * To prevent worsening of your condition and complications * To maintain your health at the optimal level Directions to Meet Your Goals Take your medications as prescribed Follow your dietary instruction Follow activity as directed Keep your appointments as scheduled Take your immunizations and boosters as scheduled If your symptoms worsen call your PCP, if no PCP go to Urgent Care Center or Emergency Room Smoking is Dangerous to Your Health. Avoid second hand smoke Call the 24-hour hour crisis hotline for domestic abuse at David Birch January 26, 2018 11:49
== END 2018-01-26 12:33 | disposition home or self-care (01) ==
LOC: NEPE 05:08 → NEDA 08:40 → NEPFCDU 12:42
PROVIDERS: ADMIT Internal Medicine Interventional Cardiology; ATTEND Internal Medicine Interventional Cardiology
DX: R07.89 Other chest pain (principal); R45.851 Suicidal ideations; F31.9 Bipolar disorder, unspecified; F10.14 Alcohol abuse with alcohol-induced mood disorder; I10 Essential (primary) hypertension; R06.02 Shortness of breath; I44.4 Left anterior fascicular block; R94.31 Abnormal electrocardiogram [ECG] [EKG]; F17.200 Nicotine dependence, unspecified, uncomplicated; Z79.899 Other long term (current) drug therapy
CPT/HCPCS: 71045; 71275; 78452; 80053; 80307; 81001; 82550; 82552; 83690; 83735; 84443; 84484; 85025; 85379; 85610; 85652; 85730; 93005; 93017; 96374; 99285; A9502; G0378; J2785; J3411; J7030; Q9967

== ENCOUNTER 2018-02-03 12:49 | Inpatient (IN) | payer MEDICARE, OTHER ==
[~2018-02-03] VITALS: Ht 177.8 cm; Wt 108.9 kg
[~2018-02-03 12:49] MED LIST changes: +AMLO2.5T PO; +BUPR100T4 PO; -HYDR50IN3 PO; +PARO10TA2 PO; -PARO30TA OR; -RISP1TAB2 OR; +RISP1TAB2 PO; -SERO50TA OR; +TRAZ50TA12 PO; +XANA2TAB2 PO
[2018-02-03 12:53] VITALS: BP 130/87; PULSE 90; RESP 16; TEMP 97.8; O2SAT 94
[2018-02-03] MEDS ORDERED: WELLTAB39 PO (12:57)
[2018-02-03] MEDS ORDERED: BUSP10TA PO (13:00)
[2018-02-03] MEDS ORDERED: ACAM1TAB5 PO (13:00)
[2018-02-03] MEDS ORDERED: TRAZ100T10 PO (13:01)
--- NOTE | 2018-02-03 13:21 | PD ---
HPI Chief Complaint: Psychiatric Symptoms Time Seen by Provider: 13:16 Travel History International Travel<30 days: No Contact w/Intl Traveler<30days: No Traveled to known affect area: No History of Present Illness HPI 52-year-old male presents emergency department under the Harrington act with suicidal ideation. Patient has history of schizophrenia. Patient states his recently 4 months ago and is having a difficult time. He denies any specific plan. Patient states he has been taking his medications. He feels anxious as well. He denies any significant acute medical problems. Patient has history of type 3 diabetes. He has no pain. He has no known drug allergies. PFSH Past Medical History Autoimmune Disease: No Anxiety: Yes Depression: Yes Cancer: No Cardiovascular Problems: Yes High Cholesterol: No Congestive Heart Failure: No Diabetes: Yes Diminished Hearing: No Endocrine: No Genitourinary: No Immune Disorder: No Musculoskeletal: No Neurologic: No Psychiatric: Yes (MAJOR DEPRESSION RECURRENT) Reproductive: No Respiratory: No Thyroid Disease: No ?: Not Past Surgical History Abdominal Surgery: No Cardiac Surgery: No Ear Surgery: No Endocrine Surgery: No Eye Surgery: No Genitourinary Surgery: No Gynecologic Surgery: No Oral Surgery: No Thoracic Surgery: No Other Surgery: Yes (R UPPER EXTREMITY SNAKE BITES) Social History Alcohol Use: Yes (8 beers per day) Tobacco Use: Yes (1 PPD) Substance Use: No Allergies-Medications (Allergen,Severity, Reaction): Coded Allergies: No Known Allergies (Unverified Adverse Reaction, Unknown, 02/03/18) Reported Meds & Prescriptions Reported Meds & Active Scripts Active Amlodipine (Amlodipine Besylate) 2.5 Mg Tab 2.5 Mg PO DAILY Reported Trazodone (Trazodone HCl) 100 Mg Tablet 100 Mg PO HS Acamprosate DR 333 Mg Tab 666 Mg PO TID Buspirone (Buspirone HCl) Unknown Strength Tab Unknown Dose PO TID Wellbutrin Xl 24 HR (Bupropion HCl) 300 Mg Tab 300 Mg PO DAILY Xanax (Alprazolam) 2 Mg Tab 2 Mg PO BID PRN Risperidone 1 Mg Tab 1 Mg PO HS Review of Systems Except as stated in HPI: all other systems reviewed are Neg General / Constitutional: No: Fever Eyes: No: Visual changes HENT: No: Headaches Cardiovascular: No: Chest Pain or Discomfort Respiratory: No: Shortness of Breath Gastrointestinal: No: Abdominal Pain Genitourinary: No: Dysuria Musculoskeletal: No: Pain Skin: No Rash Neurologic: No: Weakness Psychiatric: Positive: Depression, Suicidal Ideations, Substance Abuse, No: Homicidal Ideation Endocrine: No: Polydipsia Hematologic/Lymphatic: No: Easy Bruising Physical Exam Narrative GENERAL: Patient appears anxious and flat affect. He is in no acute distress per SKIN: Warm and dry. Normal color. Normal turgor HEAD: Atraumatic. Normocephalic. EYES: Pupils equal and round. No scleral icterus. No injection or drainage. ENT: No nasal bleeding or discharge. Mucous membranes pink and moist. Pharynx is clear. Airway is patent NECK: Trachea midline. Supple and nontender. CARDIOVASCULAR: Regular rate and rhythm. RESPIRATORY: No accessory muscle use. Clear to auscultation. Breath sounds equal bilaterally. GASTROINTESTINAL: Abdomen soft, non-tender, nondistended. Hepatic and splenic margins not palpable. MUSCULOSKELETAL: Extremities without clubbing, cyanosis, or edema. No obvious deformities. NEUROLOGICAL: Awake and alert. No obvious cranial nerve deficits. Motor grossly within normal limits. Five out of 5 muscle strength in the arms and legs. Normal speech. PSYCHIATRIC: Appropriate mood and affect; insight and judgment normal. Data Data Last Documented VS Vital Signs Date Time Temp Pulse Resp B/P (MAP) Pulse Ox O2 Delivery O2 Flow Rate FiO2 02/03/18 12:53 97.8 90 16 130/87 (101) 94 Orders Orders Complete Blood Count With Diff (02/03/18 13:17) Comprehensive Metabolic Panel (02/03/18 13:17) Thyroid Stimulating Hormone (02/03/18 13:17) Psych Screen (02/03/18 13:17) Lorazepam Inj (Ativan Inj) (02/03/18 13:30) Drug Screen, Random Urine (02/03/18 13:17) Alcohol (Ethanol) (02/03/18 13:17) [facility] Medical Decision Making Medical Screen Exam Complete: Yes Emergency Medical Condition: Yes Differential Diagnosis Harrington act. Depression. Suicidal ideation Narrative Course Psychiatric labs ordered per protocol. Patient is given 1 mg lorazepam IM. Psych screen is ordered. Patient is medically clear for psychiatric evaluation. Condition: Stable Asim Hinojosa February 03, 2018 13:21
[2018-02-03] MEDS ORDERED: LORazepam 2 MG/ML VIAL IM ONE (13:30)
[2018-02-03 13:44] LABS: AUTOMATED NEUTROPHIL # 2.4 TH/MM3 (1.8-7.7); BASOPHIL % 0.4 % (0.0-2.0); EOSINOPHIL # 0.2 TH/MM3 (0-0.4); EOSINOPHIL % 4.8 % (0.0-4.0); HEMATOCRIT 53.9 % (39.0-51.0); HEMOGLOBIN 18.3 GM/DL (13.0-17.0); LYMPH % 35.4 % (9.0-44.0); LYMPHOCYTE # 1.8 TH/MM3 (1.0-4.8); MEAN CELL VOLUME 93.1 FL (80.0-100.0); MEAN CORPUSCULAR HEMOGLOBIN 31.6 PG (27.0-34.0); MEAN CORPUSCULAR HGB CONC 33.9 % (32.0-36.0); MEAN PLATELET VOLUME 7.6 FL (7.0-11.0); MONOCYTE # 0.6 TH/MM3 (0-0.9); NEUT % 48.4 % (16.0-70.0); PLATELET COUNT 216 TH/MM3 (150-450); RED BLOOD COUNT 5.79 MIL/MM3 (4.50-5.90); RED CELL DISTRIBUTION WIDTH 13.5 % (11.6-17.2)
[2018-02-03 14:02] LABS: ALBUMIN 4.2 GM/DL (3.4-5.0); ALT (GPT) 57 U/L (12-78); AST (GOT) 37 U/L (15-37); BLOOD UREA NITROGEN 9 MG/DL (7-18); CALCIUM 8.3 MG/DL (8.5-10.1); CHLORIDE 108 MEQ/L (98-107); CREATININE 1.09 MG/DL (0.60-1.30); GLOMERULAR FILTRATION RATE 72 ML/MIN (>89); GLUCOSE,RANDOM 132 MG/DL (74-106); SODIUM (NA) 142 MEQ/L (136-145)
[2018-02-03 14:12] LABS: ALKALINE PHOSPHATASE 54 U/L (45-117); TOTAL BILIRUBIN ADULT 0.3 MG/DL (0.2-1.0); TOTAL PROTEIN 8.1 GM/DL (6.4-8.2)
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
[2018-02-03] MEDS ORDERED: NICOTINE 21 MG/24 HR PATCH T-DERMAL PRN (16:45)
[2018-02-03] MEDS ORDERED: BENZTROPINE MESYLATE 2 MG/2 ML VIAL IM PRN (16:45)
[2018-02-03] MEDS ORDERED: LORazepam 2 MG/ML VIAL IV PUSH PRN ×4 (16:45)
[2018-02-03] MEDS ORDERED: hydrOXYzine HCL 50 MG TAB PO PRN (16:45)
[2018-02-03] MEDS ORDERED: FLUMAZENIL 0.5 MG/5 ML VIAL IV PUSH PRN (16:45)
[2018-02-03] MEDS ORDERED: ACETAMINOPHEN 325 MG TAB PO PRN (16:45)
[2018-02-03] MEDS ORDERED: LORazepam 1 MG TAB PO PRN (16:45)
[2018-02-03] MEDS ORDERED: BENZTROPINE MESYLATE 1 MG TAB PO PRN (16:45)
[2018-02-03] MEDS ORDERED: MAGNESIUM HYDROXIDE SUSP 30 ML CUP PO PRN (16:45)
[2018-02-03] MEDS ORDERED: ALUMINUM/MAGNESIUM/SIMETH 30 ML CUP PO PRN (16:45)
[2018-02-03] MEDS ORDERED: LORazepam 2 MG TAB PO PRN (16:45)
[2018-02-03] MEDS ORDERED: PILL SPLITTER OTHER PRN (18:00)
[2018-02-03] MEDS ORDERED: ACAMPROSATE PO SCH (18:00)
[2018-02-03 18:01] VITALS: BP 124/75; PULSE 75; RESP 16; TEMP 98.2; O2SAT 96
[2018-02-03 20:14] VITALS: BP 137/86; PULSE 77; RESP 18; TEMP 98; O2SAT 98
[2018-02-03 20:16] VITALS: BP 137/86; PULSE 77; RESP 18; TEMP 98; O2SAT 98
[2018-02-03] MEDS: risperiDONE 1 MG TAB PO SCH (20:43)
[2018-02-03] MEDS: traZODone HCL 100 MG TAB PO SCH (20:43)
[2018-02-03] MEDS: busPIRone HCL 10 MG TAB PO SCH (20:43)
[2018-02-04 06:03] VITALS: BP 123/74; PULSE 84; RESP 16; TEMP 97.1; O2SAT 95
[2018-02-04] MEDS: buPROPion HCL 150 MG SUSTAINED RELEASE TAB PO SCH ×2 (09:12→15:48)
[2018-02-04] MEDS: MULTIVITAMINS/MINERALS THERAPEUTIC TAB PO SCH (09:12)
[2018-02-04] MEDS: THIAMINE HCL 100 MG TAB PO SCH (09:12)
[2018-02-04] MEDS: risperiDONE 1 MG TAB PO SCH ×2 (09:12→21:59)
[2018-02-04] MEDS: FOLIC ACID 1 MG TAB PO SCH (09:13)
[2018-02-04] MEDS: amLODIPine BESYLATE 5 MG TAB PO SCH (09:13)
[2018-02-04] MEDS: busPIRone HCL 10 MG TAB PO SCH ×3 (09:33→21:59)
[2018-02-04 11:33] LABS: BICARBONATE 27.5 MEQ/L (21.0-32.0); BLOOD UREA NITROGEN 16 MG/DL (7-18); CALCIUM 9.1 MG/DL (8.5-10.1); CHLORIDE 110 MEQ/L (98-107); CREATININE 1.11 MG/DL (0.60-1.30); GLOMERULAR FILTRATION RATE 70 ML/MIN (>89); GLUCOSE,RANDOM 83 MG/DL (74-106); SODIUM (NA) 142 MEQ/L (136-145)
[2018-02-04 11:35] LABS: CHOLESTEROL 153 MG/DL (120-200); TRIGLYCERIDES 138 MG/DL (42-150)
[2018-02-04 11:36] LABS: CHOLESTEROL/ HDL RATIO 4.33 RATIO; HDL CHOLESTEROL 35.3 MG/DL (40.0-60.0); LDL CHOLESTEROL 90 MG/DL (0-99)
--- NOTE | 2018-02-04 15:14 | HHI.PYPN ---
Subjective Chief Complaint: Depression, suicidal ideation, auditory hallucinations Remarks Patient seen for follow, chart reviewed. Discussion nursing staff reported the patient continues report feeling depressed, denying suicide ideations today. Patient was found in day room eating lunch noted B, cooperative. Patient states that he "got depressed" and was having suicidal ideation in the context of his having 4 months ago. Patient stated he started drinking again. He reports having had auditory hallucinations when he goes sleep but did not experience any less evening. Patient reports his mood today as being "okay" continues report feeling depressed but denying any suicide ideations at this time. Review of Systems Except as stated in HPI: all other systems reviewed are Neg Mental Status Examination Appearance: Disheveled Consciousness: Alert Orientation: x4 Motor Activity: Other (Prominent psychomotor slowing) Speech: Hesitant, Slow Language: Adequate Fund of Knowledge: Adequate Attention and Concentration: Adequate Memory: Unremarkable (Grossly intact on clinical exam) Mood: Sad, Other (Depressed) Affect: Sad, Other (Restricted) Thought Process & Associations: Other (Slowed) Thought Content: Hallucinations Hallucination Type: Auditory (Commenting. Denies command auditory hallucinations) Delusion Type: None Suicidal Ideation: Yes (Denies today) Suicidal Plan: Yes (Overdose) Suicidal Intention: No (No reported urge to hurt himself on the inpatient unit) Homicidal Ideation: No Homicidal Plan: No Homicidal Intention: No Insight: Fair Judgment: Impulsive Results Labs Labs reviewed Test 02/04/18 10:45 Blood Urea Nitrogen 16 MG/DL Creatinine 1.11 MG/DL Random Glucose 83 MG/DL Calcium Level 9.1 MG/DL Sodium Level 142 MEQ/L Potassium Level 4.0 MEQ/L Chloride Level 110 MEQ/L Carbon Dioxide Level 27.5 MEQ/L Anion Gap 5 MEQ/L Estimat Glomerular Filtration Rate 70 ML/MIN Triglycerides Level 138 MG/DL Cholesterol Level 153 MG/DL LDL Cholesterol 90 MG/DL HDL Cholesterol 35.3 MG/DL Cholesterol/HDL Ratio 4.33 RATIO Vitals/IOs Vital Signs Date Time Temp Pulse Resp B/P (MAP) Pulse Ox O2 Delivery O2 Flow Rate FiO2 02/04/18 06:03 97.1 84 16 123/74 (90) 95 Assessment & Plan Problem List: (1) Schizoaffective disorder, depressive type ICD Codes: F25.1 - Schizoaffective disorder, depressive type (2) Alcohol abuse ICD Codes: F10.10 - Alcohol abuse, uncomplicated Assessment & Plan Patient this time continues report feeling depressed, with recent suicidal ideations. Patient not endorsing any auditory hallucination less evening. We will continue current treatment. Continue monitor mood and behavior. This was planning a progress. Justification for Cont. Inpt. At risk of further decompensation at lower level care. Request HC Surrog/Guard Advoc?: No Adrian Crowder MD February 04, 2018 15:14
[2018-02-04 15:29] LABS: HEMOGLOBIN A1C 5.6 % (4.3-6.0)
[2018-02-04 17:00] VITALS: BP 110/57; PULSE 80; RESP 17; TEMP 97.7; O2SAT 94
[2018-02-04] MEDS: traZODone HCL 100 MG TAB PO SCH (21:59)
[2018-02-05 06:16] VITALS: BP 107/64; PULSE 73; RESP 16; TEMP 97.9; O2SAT 98
[2018-02-05] MEDS: amLODIPine BESYLATE 5 MG TAB PO SCH (10:11)
[2018-02-05] MEDS: THIAMINE HCL 100 MG TAB PO SCH (10:11)
[2018-02-05] MEDS: risperiDONE 1 MG TAB PO SCH ×2 (10:11→21:11)
[2018-02-05] MEDS: MULTIVITAMINS/MINERALS THERAPEUTIC TAB PO SCH (10:11)
[2018-02-05] MEDS: FOLIC ACID 1 MG TAB PO SCH (10:12)
[2018-02-05] MEDS: buPROPion HCL 150 MG SUSTAINED RELEASE TAB PO SCH ×2 (10:14→15:57)
[2018-02-05] MEDS: busPIRone HCL 10 MG TAB PO SCH ×3 (10:15→21:10)
--- NOTE | 2018-02-05 10:29 | HHI.PYPN ---
Subjective Chief Complaint: Depression, suicidal ideation, auditory hallucinations Remarks Chart reviewed and discussed with nurse. Patient states that his four months ago from lung diseases. States they knew each other for 23 years and they were for 14 years. Endorses that he had an alcohol problem in the past, but that resolved. He started drinking heavily after she and he does not want to drink. He states that he is depressed, not suicidal. He is living with his 's mother and feels this is a good situation. States, " I feel like I am having a panic attack when I think too hard and realize that my is not longer here." Cooperative and compliant. Mental Status Examination Appearance: Disheveled Consciousness: Alert Orientation: x4 Motor Activity: Other (Prominent psychomotor slowing) Speech: Hesitant, Slow Language: Adequate Fund of Knowledge: Adequate Attention and Concentration: Adequate Memory: Unremarkable (Grossly intact on clinical exam) Mood: Sad, Other (Depressed) Affect: Sad, Other (Restricted) Thought Process & Associations: Other (Slowed) Thought Content: Hallucinations Hallucination Type: Auditory (Commenting. Denies command auditory hallucinations) Delusion Type: None Suicidal Ideation: No Suicidal Plan: No Suicidal Intention: No (No reported urge to hurt himself on the inpatient unit) Homicidal Ideation: No Homicidal Plan: No Homicidal Intention: No Insight: Fair Judgment: Impulsive Results Labs Test 02/04/18 10:45 Blood Urea Nitrogen 16 MG/DL Creatinine 1.11 MG/DL Random Glucose 83 MG/DL Calcium Level 9.1 MG/DL Sodium Level 142 MEQ/L Potassium Level 4.0 MEQ/L Chloride Level 110 MEQ/L Carbon Dioxide Level 27.5 MEQ/L Anion Gap 5 MEQ/L Estimat Glomerular Filtration Rate 70 ML/MIN Hemoglobin A1c 5.6 % Triglycerides Level 138 MG/DL Cholesterol Level 153 MG/DL LDL Cholesterol 90 MG/DL HDL Cholesterol 35.3 MG/DL Cholesterol/HDL Ratio 4.33 RATIO Vitals/IOs Vital Signs Date Time Temp Pulse Resp B/P (MAP) Pulse Ox O2 Delivery O2 Flow Rate FiO2 02/05/18 06:16 97.9 73 16 107/64 (78) 98 Assessment & Plan Problem List: (1) Schizoaffective disorder, depressive type ICD Codes: F25.1 - Schizoaffective disorder, depressive type Assessment & Plan: Patient is very cooperative and quiet. He is grieving the loss of his of 14 years. He states , " I can't start drinking again, she would not want me to drink." When AA meetings suggested, he states " I kink of keep to myself, I am not one to socialize, those meetings do not work for me." Suggested the [facility] ( [address] Outpatient as another option to address his drinking and he was open to that idea. (2) Alcohol abuse ICD Codes: F10.10 - Alcohol abuse, uncomplicated Assessment & Plan Estimated LOS: days Justification for Cont. Inpt. Moving patient to a lower level of care may result in his decompensation. Request HC Surrog/Guard Advoc?: Shellie Stover February 05, 2018 10:29
--- NOTE | 2018-02-05 13:52 | EKG ---
Date Performed: 02/04/2018 Time Performed: 13:05:54 PTAGE: 52 years EKG: Sinus rhythm BORDERLINE LEFT AXIS DEVIATION WITHIN NORMAL LIMITS NORMAL ECG Since PREVIOUS TRACING , no significant change noted PREVIOUS TRACIN01/25/2018 22.02 DOCTOR: Salomon Quigley Interpretating Date/Time 02/05/2018 13:50:38
[2018-02-05 18:20] VITALS: BP 124/77; PULSE 81; RESP 17; TEMP 98.3; O2SAT 95
[2018-02-05] MEDS: traZODone HCL 100 MG TAB PO SCH (21:11)
[2018-02-06 06:35] VITALS: BP 114/66; PULSE 82; RESP 16; TEMP 98; O2SAT 100
[2018-02-06] MEDS: FOLIC ACID 1 MG TAB PO SCH (09:23)
[2018-02-06] MEDS: MULTIVITAMINS/MINERALS THERAPEUTIC TAB PO SCH (09:23)
[2018-02-06] MEDS: THIAMINE HCL 100 MG TAB PO SCH (09:23)
[2018-02-06] MEDS: risperiDONE 1 MG TAB PO SCH ×2 (09:23→21:38)
[2018-02-06] MEDS: amLODIPine BESYLATE 5 MG TAB PO SCH (09:23)
[2018-02-06] MEDS: busPIRone HCL 10 MG TAB PO SCH ×3 (09:24→21:38)
[2018-02-06] MEDS: buPROPion HCL 150 MG SUSTAINED RELEASE TAB PO SCH ×2 (09:24→15:48)
--- NOTE | 2018-02-06 15:00 | HHI.PYPN ---
Subjective Chief Complaint: Depression, suicidal ideation, auditory hallucinations Remarks Patient seen and examined with nurse in weekend coverage. Chart reviewed. Case discussed with nursing staff. On my examination today, the patient seems to be in fair spirits. Affect seems brighter versus my last contact with the patient. He denies any SI or HI. Denies any AVH. No side effects from medications. No physical complaints. Review of Systems Except as stated in HPI: all other systems reviewed are Neg Mental Status Examination Appearance: Appropriate Consciousness: Alert Orientation: x4 Motor Activity: Other (No motor abnormalities noted. No signs or withdrawal noted.) Speech: Hesitant, Slow Language: Adequate Fund of Knowledge: Adequate Attention and Concentration: Adequate Memory: Unremarkable (Grossly intact on clinical exam) Mood: Other (Mildly dysphoric) Affect: Other (More reactive) Thought Process & Associations: Intact, Logical, Linear Thought Content: Appropriate Hallucination Type: None Delusion Type: None Suicidal Ideation: No Suicidal Plan: No Suicidal Intention: No Homicidal Ideation: No Homicidal Plan: No Homicidal Intention: No Insight: Fair Judgment: Impulsive Results Labs Labs reviewed Vitals/IOs Vital Signs Date Time Temp Pulse Resp B/P (MAP) Pulse Ox O2 Delivery O2 Flow Rate FiO2 02/06/18 06:35 98.0 82 16 114/66 (82) 100 Assessment & Plan Problem List: (1) Schizoaffective disorder, depressive type ICD Codes: F25.1 - Schizoaffective disorder, depressive type (2) Alcohol abuse ICD Codes: F10.10 - Alcohol abuse, uncomplicated Assessment & Plan Continue current psychotropic medications as ordered. Continue to monitor on the inpatient unit. Continue other medications and care as ordered. Justification for Cont. Inpt. Risk for decompensation in less restrictive environment. Discharge Planning As ordered by primary psychiatrist Request HC Surrog/Guard Advoc?: No Parihs Keller MD February 06, 2018 15:00
[2018-02-06 15:17] VITALS: BP 122/83; PULSE 75; RESP 18; TEMP 98; O2SAT 100
[2018-02-06] MEDS: traZODone HCL 100 MG TAB PO SCH (21:38)
[2018-02-07 06:18] VITALS: BP 120/77; PULSE 77; RESP 19; TEMP 97.3; O2SAT 97
[2018-02-07] MEDS: risperiDONE 1 MG TAB PO SCH (08:51)
[2018-02-07] MEDS: MULTIVITAMINS/MINERALS THERAPEUTIC TAB PO SCH (08:51)
[2018-02-07] MEDS: FOLIC ACID 1 MG TAB PO SCH (08:51)
[2018-02-07] MEDS: THIAMINE HCL 100 MG TAB PO SCH (08:51)
[2018-02-07] MEDS: amLODIPine BESYLATE 5 MG TAB PO SCH (08:52)
[2018-02-07] MEDS: buPROPion HCL 150 MG SUSTAINED RELEASE TAB PO SCH (08:56)
[2018-02-07] MEDS: busPIRone HCL 10 MG TAB PO SCH (08:56)
[2018-02-07] MEDS ORDERED: BUSP10TA PO (12:12)
[2018-02-07] MEDS ORDERED: THIA100 PO (12:12)
[2018-02-07] MEDS ORDERED: AMLO2.5T PO (12:12)
[2018-02-07] MEDS ORDERED: RISP1 PO (12:12)
[2018-02-07] MEDS ORDERED: THERM PO (12:12)
[2018-02-07] MEDS ORDERED: FOLI1TAB6 PO (12:12)
[2018-02-07] MEDS ORDERED: BUPR150CR PO (12:12)
[2018-02-07] MEDS ORDERED: TRAZ100T10 PO (12:12)
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
== END 2018-02-07 14:45 | disposition home or self-care (01) | DRG 885 ==
LOC: NEPJ 12:49 → NEDA 16:18 → H270 19:30
PROVIDERS: ADMIT Student in an Organized Health Care Education/Training Program; ATTEND Student in an Organized Health Care Education/Training Program
DX: F25.1 Schizoaffective disorder, depressive type (principal); E11.9 Type 2 diabetes mellitus without complications; I10 Essential (primary) hypertension; F10.10 Alcohol abuse, uncomplicated; Y90.6 Blood alcohol level of 120-199 mg/100 ml; F17.210 Nicotine dependence, cigarettes, uncomplicated; Z62.810 Personal history of physical and sexual abuse in childhood
CPT/HCPCS: 80048; 80053; 80061; 80307; 83036; 84443; 85025; 93005; 99285